=== PATIENT | female | born 1935 | race Caucasian/White ===

== ENCOUNTER 2023-10-15 00:20 | Inpatient (IN) | payer MEDICARE ==
[~2023-10-15] VITALS: Ht 154.9 cm; Wt 51.3 kg
[2023-10-15] MEDS ORDERED: ESCI10TA (01:09)
[2023-10-15] MEDS ORDERED: ENOX40DI SUBCUT (01:09)
[2023-10-15 02:06] VITALS: BP 122/74; TEMP 97.7; O2SAT 95
[2023-10-15] MEDS ORDERED: ACETAMINOPHEN 325 MG TABLET PO PRN (02:15)
[2023-10-15] MEDS ORDERED: MAG HYDROX/AL HYDROX/SIMETH 30 ML LIQUID UDC PO PRN (02:15)
[2023-10-15] MEDS ORDERED: OMEP20CA15 PO (02:18)
[2023-10-15] MEDS ORDERED: MAGN400O6 PO (02:21)
[2023-10-15] MEDS ORDERED: ACET-2154 PO (02:24)
[2023-10-15] MEDS ORDERED: DIAZ5TAB PO (02:25)
[2023-10-15] MEDS ORDERED: POLY17PO4 PO (02:26)
[2023-10-15] MEDS: BLOOD SUGAR DIAGNOSTIC 1 EACH STRIP VI ONE (02:27)
[2023-10-15 08:04] VITALS: BP 110/52; TEMP 98.2; O2SAT 96
[2023-10-15] MEDS: ESCITALOPRAM OXALATE 10 MG TABLET PO SCH (14:45)
[2023-10-15 15:42] VITALS: BP 118/66; TEMP 98.2; O2SAT 96
[2023-10-15 20:11] VITALS: BP 116/74; TEMP 98.1; O2SAT 96
[2023-10-15] MEDS: LORAZEPAM 0.5 MG TABLET PO PRN (20:59)
[2023-10-15] MEDS: TEMAZEPAM 7.5 MG CAPSULE PO PRN (22:50)
[2023-10-16 08:03] VITALS: BP 144/57; TEMP 97.8; O2SAT 98
[2023-10-16 15:15] VITALS: BP 111/72; TEMP 97.8; O2SAT 96
[2023-10-16 20:00] VITALS: BP 115/70; TEMP 97.7; O2SAT 95
[2023-10-17 08:00] VITALS: BP 104/56; TEMP 98.3; O2SAT 95
[2023-10-17 14:25] LABS: THYROID STIMULATING HORMONE 2.1 mIU/mL (0.358-3.740)
[2023-10-17 15:55] VITALS: BP 114/68; TEMP 98.2; O2SAT 95
[2023-10-17 18:33] LABS: *BILIRUBIN,URIN NEGATIVE (NEGATIVE); *BLOOD, URINE 2+ (NEGATIVE); *CLARITY,URINE SLIGHTLY CLOUDY (CLEAR); *COLOR,URINE YELLOW (YELLOW); *KETONES,URINE NEGATIVE (NEGATIVE); *PROTEIN,URINE 1+ (NEGATIVE); *UROBILINOGEN,URINE 0.2 E.U./dl (NORMAL); LEUKOCYTE ESTERASE ,URINE TRACE (NEGATIVE); NITRITE, URINE POSITIVE (NEGATIVE); PH,URINE 5.5 (5.0-8.0); UGLUCOSE NEGATIVE (NEGATIVE)
[2023-10-17 18:59] LABS: BACTERIA,URINE MANY /HPF (NONE SEEN); SQUAMOUS EPITHELIAL CELL,UR MODERATE /HPF (NONE SEEN); WBC,URINE 0-3 /HPF (0-3)
[2023-10-17 20:00] VITALS: BP 128/63; TEMP 98.6; O2SAT 97
[2023-10-17] MEDS: CEphaleXIN 250 MG CAPSULE ONE (21:33)
[2023-10-17] MEDS: CEphaleXIN 250 MG CAPSULE PO SCH (22:53)
[2023-10-18] MEDS: CYANOCOBALAMIN 1,000 MCG TABLET PO SCH (08:08)
[2023-10-18 08:18] VITALS: BP 119/62; TEMP 98.1; O2SAT 97
[2023-10-18 16:27] VITALS: BP 122/65; TEMP 98; O2SAT 97
[2023-10-18 20:00] VITALS: BP 108/50; TEMP 98.3; O2SAT 95
[2023-10-19 08:46] VITALS: BP 116/59; TEMP 97.8; O2SAT 94
[2023-10-19 15:58] VITALS: BP 107/58; TEMP 98; O2SAT 96
[2023-10-19 19:58] VITALS: BP 117/76; TEMP 98; O2SAT 95
[2023-10-20 08:09] VITALS: BP 111/54; TEMP 97.6; O2SAT 97
[2023-10-20 16:15] VITALS: BP 123/74; TEMP 97.8; O2SAT 97
[2023-10-20] MEDS: ENSURE ENLIVE (VAN) 240 ML LIQUID PO SCH (16:28)
[2023-10-20 19:57] VITALS: BP 118/64; TEMP 98.1; O2SAT 96
[2023-10-20] MEDS: ATORVASTATIN 10 MG TABLET PO SCH (20:18)
[2023-10-21 07:29] LABS: BASOPHILS % (AUTO) 0.5 % (0.0-2.0); EOSINOPHILS # (AUTO) 0.3 K/uL (0.0-0.7); EOSINOPHILS % (AUTO) 6.9 % (0.0-7.0); HEMATOCRIT 36.6 % (31.2-41.9); HEMOGLOBIN 12.5 g/dL (10.9-14.3); LYMPHOCYTES # (AUTO) 1.4 K/uL (0.8-4.8); LYMPHOCYTES % (AUTO) 31.8 % (20.5-51.5); MEAN CORPUSCULAR HEMOGLOBIN 27.8 uug (24.7-32.8); MEAN CORPUSCULAR HGB CONC 34 g/dL (32.3-35.6); MEAN CORPUSCULAR VOLUME 81.6 fL (75.5-95.3); MONOCYTES # (AUTO) 0.4 K/uL (0.1-1.30); MONOCYTES % (AUTO) 9.5 % (0.0-11.0); NEUTROPHILS # (AUTO) 2.2 K/uL (1.8-8.9); NEUTROPHILS % (AUTO) 51.3 % (38.5-71.5); PLATELET COUNT (AUTO) 269 K/uL (179-408); RED BLOOD CELL COUNT(AUTO) 4.49 MIL/uL (3.63-4.92); RED CELL DISTRIBUTION WIDTH 14.6 % (12.3-17.7); WHITE BLOOD COUNT (AUTO) 4.4 K/uL (3.8-11.8)
[2023-10-21 08:31] LABS: DIFFERENTIAL COMMENT 1
[2023-10-21 08:40] LABS: ALANINE AMINOTRANSFERASE 13 U/L (14-59); ALBUMIN 2.6 g/dL (3.4-5.0); ALKALINE PHOSPHATASE 61 U/L (50-136); ASPARTATE AMINOTRANSFERASE 18 U/L (15-37); BILIRUBIN,TOTAL 0.3 mg/dL (0.2-1.0); CALCIUM 8.7 mg/dL (8.5-10.1); CARBON DIOXIDE 29 mmol/L (21-32); CHLORIDE 107 mmol/L (98-107); CREATININE 0.6 mg/dL (0.6-1.3); GLUCOSE 100 mg/dL (74-106); MAGNESIUM 2.1 mg/dL (1.8-2.4); PHOSPHOROUS 4.1 mg/dL (2.5-4.9); POTASSIUM 3.6 mmol/L (3.5-5.1); SODIUM SERUM 143 mmol/L (136-145); TOTAL PROTEIN, SERUM 5.7 g/dL (6.4-8.2); UREA NITROGEN, BLOOD 9 mg/dL (7-18)
[2023-10-21 08:50] VITALS: BP 129/67; TEMP 97.8; O2SAT 96
[2023-10-21 15:56] VITALS: BP 102/67; TEMP 98; O2SAT 99
[2023-10-21] MEDS: MAGNESIUM HYDROXIDE 30 ML LIQUID UDC PO PRN (17:01)
[2023-10-21 20:29] VITALS: BP 106/55; TEMP 98.1; O2SAT 96
[2023-10-21] MEDS ORDERED: CEphaleXIN 250 MG CAPSULE ONE ×2 (20:42→20:43)
[2023-10-22 08:02] VITALS: BP 141/61; TEMP 98; O2SAT 96
[2023-10-22 15:19] VITALS: BP 99/55; TEMP 97.8; O2SAT 97
[2023-10-23 11:12] VITALS: BP 116/56; TEMP 97.8; O2SAT 95
[2023-10-23 15:43] VITALS: BP 108/56; TEMP 98.2; O2SAT 93
[2023-10-23 20:00] VITALS: BP 121/54; TEMP 98.1; O2SAT 96
[2023-10-24 08:04] VITALS: BP 111/59; TEMP 98.2; O2SAT 96
[2023-10-24 15:43] VITALS: BP 101/50; TEMP 98; O2SAT 96
[2023-10-24 20:00] VITALS: BP 107/57; TEMP 99; O2SAT 93
[2023-10-25 08:10] VITALS: BP 123/67; TEMP 98.1; O2SAT 98
[2023-10-25 16:07] VITALS: BP 109/54; TEMP 98; O2SAT 98
[2023-10-25 20:36] VITALS: BP 96/59; TEMP 98; O2SAT 98
[2023-10-26 08:16] VITALS: BP 102/54; TEMP 98; O2SAT 97
[2023-10-26 16:20] VITALS: BP 136/54; TEMP 98.1
[2023-10-26 19:52] VITALS: BP 112/55; TEMP 98.1; O2SAT 96
[2023-10-27 07:52] VITALS: BP 105/59; TEMP 98.2; O2SAT 98
[2023-10-27 16:18] VITALS: BP 103/55; TEMP 98; O2SAT 98
[2023-10-27 20:00] VITALS: BP 107/63; TEMP 98.1; O2SAT 95
[2023-10-28 09:55] VITALS: BP 101/63; TEMP 97.8; O2SAT 94
[2023-10-28 15:19] VITALS: BP 121/62; TEMP 97.8; O2SAT 98
[2023-10-28 20:14] VITALS: BP 108/60; TEMP 97.7; O2SAT 96
[2023-10-29 07:59] VITALS: BP 133/59; TEMP 98; O2SAT 96
[2023-10-29 15:22] VITALS: BP 102/66; TEMP 98; O2SAT 94
[2023-10-29 20:00] VITALS: BP 140/72; TEMP 98; O2SAT 98
[2023-10-30 08:09] VITALS: BP 111/57; TEMP 98.8; O2SAT 95
== END 2023-10-30 12:35 | DRG 885 ==
LOC: ER 00:27 → GPS 00:45
PROVIDERS: ADMIT Psychiatry & Neurology Psychosomatic Medicine; ATTEND Nurse Practitioner Acute Care
DX: F33.0 Major depressive disorder, recurrent, mild (principal); N39.0 Urinary tract infection, site not specified; F03.94 Unspecified dementia, unspecified severity, with anxiety; F03.93 Unspecified dementia, unspecified severity, with mood disturbance; T42.4X2D Poisoning by benzodiazepines, intentional self-harm, subsequent encounter; Z11.52 Encounter for screening for COVID-19; B96.20 Unspecified Escherichia coli [E. coli] as the cause of diseases classified elsewhere; S00.83XD Contusion of other part of head, subsequent encounter; W18.39XD Other fall on same level, subsequent encounter; R53.1 Weakness; H35.30 Unspecified macular degeneration; G89.29 Other chronic pain; Z85.828 Personal history of other malignant neoplasm of skin; Z91.81 History of falling; Z79.899 Other long term (current) drug therapy; Z88.0 Allergy status to penicillin; M48.00 Spinal stenosis, site unspecified; E78.5 Hyperlipidemia, unspecified
CPT/HCPCS: 36415; 70450; 71045; 82747; 83735; 83921; 84100; 84443; 85014; 85025